=== PATIENT | male | born 1960 | race African-American/Black ===

== ENCOUNTER 2019-02-22 12:00 | Outpatient (CLI) | payer MEDICARE, OTHER ==
--- NOTE | 2019-02-22 13:28 | Diagnostic Imaging Report ---
Indication: Dyspnea Comparison: 01/14/2011 2 views of the chest obtained. Findings: Cardiomediastinal silhouette and pulmonary vascularity are within normal limits for age. The diaphragmatic contour is smooth and costophrenic angles are sharp. No pleural effusions are identified. The bones are unremarkable. Impression: No acute disease
== END 2019-02-22 14:00 | disposition home or self-care (01) ==
LOC: RAD 12:00
DX: R06.02 Shortness of breath (principal); B20 Human immunodeficiency virus [HIV] disease
CPT/HCPCS: 71046

== ENCOUNTER → 2020-03-19 | Outpatient (CLI) | payer MEDICARE, OTHER ==
--- NOTE | 2020-03-19 14:23 | Diagnostic Imaging Report ---
Indication: Foot pain Technique: 3 views of the right foot Comparison: None. Correlation made to images of the left foot. Findings: Bone mineralization within normal limits. No acute fracture or dislocation is identified. There is some productive/enthesopathic changes at the base of the fifth metatarsal. Lisfranc alignment is maintained. There are dorsal and plantar calcaneal enthesophytes. There are atherosclerotic vascular calcifications. Some small tibiotalar osteophytes are also noted. IMPRESSION: No acute fracture or dislocation. Enthesopathic changes at the base of the fifth metatarsal. Consider lateral cord plantar fasciopathy.
--- NOTE | 2020-03-19 14:24 | Diagnostic Imaging Report ---
Indication: Foot pain Technique: 2 views of the left foot Comparison: None. Correlation made to images of the right foot. Findings: Bony mineralization within normal limits. No acute fracture or dislocation is identified. There are productive/enthesopathic changes at the base of the fifth metatarsal. Lisfranc alignment is maintained. There are dorsal and plantar calcaneal enthesophytes. There are atherosclerotic vascular calcifications. IMPRESSION: No acute fracture or dislocation. Enthesopathic changes at the base of the fifth metatarsal. Consider lateral cord plantar fasciopathy.
== END | disposition home or self-care (01) ==
LOC: RAD 12:10
DX: M25.572 Pain in left ankle and joints of left foot (principal); M25.571 Pain in right ankle and joints of right foot